=== PATIENT | female | born 1980 | race Two or more races ===

== ENCOUNTER 2025-01-28 09:41 | Day surgery (SDC) | payer OTHER ==
[~2025-01-28] VITALS: Ht 162.6 cm; Wt 71.7 kg
[2025-01-28] MEDS ORDERED: LR 1,000 ML IV SCH (10:15)
[2025-01-28 10:24] LABS: PLATELET COUNT, AUTOMATED 315 10^3/uL (150-450)
[2025-01-28] MEDS ORDERED: LIDOCAINE 2% 100 MG/5 ML SDV (FOR ANES.) As Ordered ONE (10:28)
[2025-01-28] MEDS ORDERED: KETOROLAC 30 MG/ML 1 ML VIAL As Ordered ONE (10:37)
[2025-01-28] MEDS ORDERED: MIDAZOLAM INJ 2 MG/2 ML VIAL As Ordered ONE (10:38)
[2025-01-28] MEDS ORDERED: dexAMETHasone 4 MG/ML 1 ML VIAL As Ordered ONE (11:23)
[2025-01-28] MEDS ORDERED: ONDANSETRON 4MG/2ML VIAL As Ordered ONE (11:23)
[2025-01-28] MEDS: ceFAZolin SOD 2 GM IV ONCE IV ONE (11:40)
[2025-01-28] MEDS ORDERED: ONDANSETRON 4MG/2ML VIAL IV PRN (12:35)
[2025-01-28] MEDS ORDERED: MEPERIDINE 25 MG/ML 1 ML VIAL IV PRN (12:35)
[2025-01-28 13:36] VITALS: BP 132/67; TEMP 97.5; O2SAT 100
== END 2025-01-28 13:38 | disposition home or self-care (01) ==
LOC: M SDC 09:41
PROVIDERS: ATTEND Obstetrics & Gynecology
DX: T83.39XA Other mechanical complication of intrauterine contraceptive device, initial encounter (principal); Y76.2 Prosthetic and other implants, materials and accessory obstetric and gynecological devices associated with adverse incidents; Z86.19 Personal history of other infectious and parasitic diseases
CPT/HCPCS: 36415; 58301; 58558; 81025; 85027; 88300; 88305; J0688; J1100; J1885; J2250; J2405; J3010